=== PATIENT | female | born 1955 | race American Indian/Alaskan Native ===

== ENCOUNTER 2019-02-13 07:26 | Emergency (ER) | payer OTHER ==
[2019-02-13 07:35] VITALS: BP 178/100
[2019-02-13] MEDS ORDERED: TENORMIN PO ONE ×2 (08:20)
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
== END 2019-02-13 10:07 | disposition home or self-care (01) ==
LOC: ED 07:26
DX: S16.1XXA Strain of muscle, fascia and tendon at neck level, initial encounter (principal); M25.511 Pain in right shoulder; M25.512 Pain in left shoulder; I10 Essential (primary) hypertension; E78.5 Hyperlipidemia, unspecified; Z79.899 Other long term (current) drug therapy; Z90.711 Acquired absence of uterus with remaining cervical stump; V89.2XXA Person injured in unspecified motor-vehicle accident, traffic, initial encounter; Y93.89 Activity, other specified; Y92.488 Other paved roadways as the place of occurrence of the external cause; Y99.8 Other external cause status
CPT/HCPCS: 72040; 74018; 99283

== ENCOUNTER 2019-06-26 11:49 | Emergency (ER) | payer BC, OTHER ==
[2019-06-26] MEDS ORDERED: ASPIRIN 325 MG TAB PO ONE (12:10)
--- NOTE | 2019-06-26 12:12 | Event Note ---
ED Screening Note Date of service: 06/26/19 Time: 12:08 ED Screening Note: 63 y o female with a PMH of HTN on medication presents cc of chest pain and headache x 2 days also cc of sob and dizziness This initial assessment/diagnostic orders/clinical plan/treatment(s) is/are subject to change based on patients health status, clinical progression and re- assessment by fellow clinical providers in the ED. Further treatment and workup at subsequent clinical providers discretion. Patient/guardian urged not to elope from the ED as their condition may be serious if not clinically assessed and managed. Initial orders include: labs,ekg,cxr main side eval
--- NOTE | 2019-06-26 12:40 | XRay Report ---
CHEST 1 VIEW 06/26/2019 12:20 PM INDICATION / CLINICAL INFORMATION: Chest Pain. COMPARISON: 2 views of the chest from 11/07/2014 FINDINGS: SUPPORT DEVICES: None. HEART / MEDIASTINUM: No significant abnormality. LUNGS / PLEURA: No significant pulmonary or pleural abnormality. No pneumothorax. ADDITIONAL FINDINGS: No significant additional findings. IMPRESSION: 1. No acute abnormality of the chest. Signer Name: Sunny Bernabe MD Signed: 06/26/2019 12:36 PM Workstation Name: [id number]
--- NOTE | 2019-06-26 12:47 | Emergency Department Report ---
ED Chest Pain HPI - General Chief Complaint: Chest Pain Stated Complaint: SOB,CHEST HURTING,HEADACHE,DIZZY Time Seen by Provider: 06/26/19 12:36 Source: patient Mode of arrival: Ambulatory Limitations: No Limitations - History of Present Illness Initial Comments: Patient is 63 years old female with history of hypertension and hyperlipidemia. Patient was sent from her doctor office for evaluation of chest pain for the last 2weeks. Patient stated that pain get worse today. Patient described her pain as aching with no radiation. Patient also complaining of shortness of breath. Patient stated that she have to sleep on at least 3 pillows. She also reported bilateral lower extremity edema. Patient denied any fever or chills. MD Complaint: chest pain -: week(s) Onset: during rest, during exertion Pain Location: left chest Severity: moderate Severity scale (0 -10): 7 Quality: aching Consistency: constant - Related Data Home Medications Medication Instructions Recorded Confirmed Last Taken Atenolol [Tenormin] 50 mg PO DAILY 11/07/14 11/07/14 Unknown Furosemide [Lasix] 40 mg PO DAILY 11/07/14 11/07/14 Unknown Potassium Chloride [Klor-Con 10] 10 meq PO DAILY 11/07/14 11/07/14 Unknown Previous Rx's Medication Instructions Recorded Last Taken Type Meclizine [Antivert] 25 mg PO TID PRN #30 tablet 11/07/14 Unknown Rx Ibuprofen [Motrin 800 MG tab] 800 mg PO Q8HR PRN #20 tablet 02/13/19 Unknown Rx Methocarbamol [Robaxin] 500 mg PO BID PRN #15 tablet 02/13/19 Unknown Rx Allergies Allergy/AdvReac Type Severity Reaction Status Date / Time codeine AdvReac Unknown Verified 06/26/19 11:50 Heart Score - HEART Score History: Moderately suspicious EKG: Non-specific Age: 45-65 Risk factors: 1-2 risk factors Troponin: < normal limit HEART Score: 4 - Critical Actions Critical Actions: 4-6 pts:12-16.6% risk of adverse cardiac event. Should be admitted ED Review of Systems ROS: Stated complaint: SOB,CHEST HURTING,HEADACHE,DIZZY Other details as noted in HPI Comment: All other systems reviewed and negative Constitutional: denies: chills, fever Respiratory: cough, orthopnea, shortness of breath, SOB with exertion, SOB at rest Cardiovascular: chest pain, edema Gastrointestinal: denies: abdominal pain, nausea, vomiting Musculoskeletal: denies: back pain Neurological: denies: headache, weakness, numbness, paresthesias, confusion, abnormal gait ED Past Medical Hx - Past Medical History Hx Hypertension: Yes Additional medical history: elevated cholesterol - Surgical History Additional Surgical History: bilateral knees, partial hysterectomy - Social History Smoking Status: Never Smoker Substance Use Type: None - Medications Home Medications: Home Medications Medication Instructions Recorded Confirmed Last Taken Type Atenolol [Tenormin] 50 mg PO DAILY 11/07/14 11/07/14 Unknown History Furosemide [Lasix] 40 mg PO DAILY 11/07/14 11/07/14 Unknown History Meclizine [Antivert] 25 mg PO TID PRN #30 tablet 11/07/14 Unknown Rx Potassium Chloride [Klor-Con 10] 10 meq PO DAILY 11/07/14 11/07/14 Unknown History Ibuprofen [Motrin 800 MG tab] 800 mg PO Q8HR PRN #20 tablet 02/13/19 Unknown Rx Methocarbamol [Robaxin] 500 mg PO BID PRN #15 tablet 02/13/19 Unknown Rx ED Physical Exam - General Limitations: No Limitations General appearance: alert, in no apparent distress - Head Head exam: Present: atraumatic, normocephalic, normal inspection - Eye Eye exam: Present: normal appearance - ENT ENT exam: Present: normal exam, normal orophraynx, mucous membranes moist - Neck Neck exam: Present: normal inspection, full ROM. Absent: tenderness, meningismus, lymphadenopathy, thyromegaly - Respiratory Respiratory exam: Present: normal lung sounds bilaterally - Cardiovascular Cardiovascular Exam: Present: regular rate, normal rhythm, normal heart sounds - GI/Abdominal GI/Abdominal exam: Present: soft, normal bowel sounds. Absent: distended, tenderness, guarding, rebound, rigid, organomegaly, mass, bruit, pulsatile mass - Extremities Exam Extremities exam: Present: normal inspection, full ROM, normal capillary refill, pedal edema. Absent: calf tenderness - Back Exam Back exam: Present: normal inspection, full ROM. Absent: CVA tenderness (R), CVA tenderness (L), muscle spasm, paraspinal tenderness, vertebral tenderness - Neurological Exam Neurological exam: Present: alert, oriented X3, CN II-XII intact, normal gait, reflexes normal. Absent: motor sensory deficit - Psychiatric Psychiatric exam: Present: normal mood - Skin Skin exam: Present: warm, intact, normal color ED Course Vital Signs 06/26/19 06/26/19 12:05 12:40 Temperature 98.6 F Pulse Rate 60 Respiratory 18 16 Rate Blood Pressure 160/84 O2 Sat by Pulse 97 98 Oximetry VIRGIL score - Virgil Score Age > 65: (0) No Aspirin use within the Past 7 Days: (0) No 3 or more CAD Risk Factors: (0) No 2 or more Angina events in past 24 hrs: (0) No Known CAD with more than 50% Stenosis: (0) No Elevated Cardiac Markers: (0) No ST Deviation Greater than 0.5mm: (0) No VIRGIL Score: 0 ED Medical Decision Making - Lab Data Result diagrams: 06/26/19 12:16 06/26/19 12:16 - EKG Data -: EKG Interpreted by Me EKG shows normal: sinus rhythm Rate: normal - EKG Data Interpretation: no acute changes - Radiology Data Radiology results: report reviewed - Medical Decision Making Patient is 63 years old female with history of hypertension and hyperlipidemia. Patient was sent from her doctor office for evaluation of chest pain for the last 2weeks. Patient stated that pain get worse today. Patient described her pain as aching with no radiation. Patient also complaining of shortness of breath. Patient stated that she have to sleep on at least 3 pillows. She also reported bilateral lower extremity edema. Patient denied any fever or chills. Patient EKG showed no ST elevation or depression. Chest x-ray is negative for acute finding labs reviewed and is negative including first set of troponin. D- dimer elevated however CTA chest is negative for PE. Patient stated that her chest pain is much better now. I recommended that patient need to be admitted for chest pain rule out myocardial infarction. Patient stated that she cannot be admitted because she wanted to take care of her grandkids who are in the nursery now and their parents are out of town. I discussed with her thoroughly risks of leaving the ER AGAINST MEDICAL ADVICE which include heart attack and . Patient is alert, oriented x3 and able to make a sound decision. Critical care attestation.: If time is entered above; I have spent that time in minutes in the direct care of this critically ill patient, excluding procedure time. ED Disposition Clinical Impression: Chest pain Disposition: [id number] LEFT AGAINST MED ADVICE Is pt being admited?: No Condition: Stable Instructions: Chest Pain (ED)
[2019-06-26 12:59] LABS: Basophils % (Auto) 0.5 % (0.0-1.8); Eosinophils # (Auto) 0.1 K/mm3 (0.0-0.4); Eosinophils % (Auto) 1.9 % (0.0-4.3); Hematocrit 34.7 % (30.3-42.9); Lymphocytes # (Auto) 1.3 K/mm3 (1.2-5.4); Lymphocytes % (Auto) 36.3 % (13.4-35.0); Mean Corpuscular HGB Conc 32 % (30-34); Mean Corpuscular Volume 91 fl (79-97); Monocytes # (Auto) 0.3 K/mm3 (0.0-0.8); Monocytes % (Auto) 7.8 % (0.0-7.3); Platelet Count 195 K/mm3 (140-440); Red Blood Count 3.82 M/mm3 (3.65-5.03); Red Cell Distribution Width 14.4 % (13.2-15.2)
[2019-06-26 13:26] LABS: BUN/Creatinine Ratio 17; Blood Urea Nitrogen 12 mg/dL (7-17); Calcium 8.8 mg/dL (8.4-10.2); Hemolysis Index 10
[2019-06-26 13:45] LABS: INR 1.06 (0.87-1.13)
[2019-06-26 13:57] LABS: Alanine Aminotransferase 21 units/L (7-56)
[2019-06-26 14:01] LABS: Bilirubin,Direct < 0.2 mg/dL (0-0.2)
--- NOTE | 2019-06-26 16:03 | Cat Scan Report ---
6 CTA chest with contrast INDICATION : CHEST PAIN WITH SOB. TECHNIQUE: Axial imaging performed through the chest, with contrast bolus timing set to maximize opa cification of the pulmonary arteries. 3-plane MIP reformatted images were obtained. All CT scans at this location are performed using CT dose reduction for ALARA by means of automated exposure control. 100 mL of intravenous contrast administered. COMPARISON: None. FINDINGS: Bolus: Contrast bolus timing is adequate. PTE: No filling defect is present to suggest PTE. Mediastinum: Heart and great vessels appear normal. No pathologic mediastinal adenopathy. Lungs: Mild emphysematous change with otherwise clear lungs. Upper abdomen: Limited imaging of the upper abdomen shows nothing acute. Bones: Degenerative changes in the spine with nothing acute. IMPRESSION: Negative for PTE. Clear lungs. Signer Name: Joshua Soler MD Signed: 06/26/2019 3:59 PM Workstation Name: [id number]
[2019-06-26 17:11] VITALS: BP 151/97
== END 2019-06-26 17:15 | disposition left against medical advice (07) ==
LOC: ED 11:49
DX: R07.9 Chest pain, unspecified (principal); I10 Essential (primary) hypertension; E78.5 Hyperlipidemia, unspecified
CPT/HCPCS: 36415; 71046; 71275; 80048; 80076; 83880; 84484; 85025; 85379; 85610; 85730; 93005; 93010; 99285; Q9967

== ENCOUNTER 2019-06-26 18:30 | Inpatient (IN) | payer BC ==
[2019-06-26] MEDS ORDERED: ASPIRIN 325 MG TAB PO ONE (20:02)
--- NOTE | 2019-06-26 20:04 | Emergency Department Report ---
ED Chest Pain HPI - General Chief Complaint: Dizziness Stated Complaint: DIZZY/LIGHT HEADED/CP Time Seen by Provider: 06/26/19 19:56 Source: patient Mode of arrival: Ambulatory Limitations: No Limitations - History of Present Illness Initial Comments: Patient is a 63-year-old female that presents emergency room with complaints of chest pain, dizziness and lightheadedness. Patient states she was here earlier and it was recommended that she was admitted and she signed out AGAINST MEDICAL ADVICE at 5 PM. Patient states she left the hospital and her chest pain was mild. Patient states her chest pain returned and worsened. Patient states her chest pain now is a 7 out of 10. Patient dates in the center of her chest. Patient states the pain is nonradiating. Patient denies shortness of breath. Patient denies fever and chills. Patient denies cough. Patient states her pain is better with rest and worse with exertion. Patient states her dizziness and lightheadedness are better with rest and worse with exertion. MD Complaint: chest pain -: Sudden Onset: during rest Pain Location: substernal, left chest Pain Radiation: none Severity: severe Severity scale (0 -10): 7 Quality: sharp Consistency: constant Improves With: rest Worsens With: exertion re: denies: nausea, vomting, diaphoresis, dyspnea, sense of impending doom Other Symptoms: denies: cough, fever, syncope, rash, acid taste in mouth, leg swelling, palpitations, burping Treatments Prior to Arrival: aspirin Aspirin use within the Past 7 Days: (1) Yes - Related Data On Oral Contraceptives: No Home Medications Medication Instructions Recorded Confirmed Last Taken Atenolol [Tenormin] 50 mg PO DAILY 11/07/14 11/07/14 Unknown Furosemide [Lasix] 40 mg PO DAILY 11/07/14 11/07/14 Unknown Potassium Chloride [Klor-Con 10] 10 meq PO DAILY 11/07/14 11/07/14 Unknown Previous Rx's Medication Instructions Recorded Last Taken Type Meclizine [Antivert] 25 mg PO TID PRN #30 tablet 11/07/14 Unknown Rx Ibuprofen [Motrin 800 MG tab] 800 mg PO Q8HR PRN #20 tablet 02/13/19 Unknown Rx Methocarbamol [Robaxin] 500 mg PO BID PRN #15 tablet 02/13/19 Unknown Rx Allergies Allergy/AdvReac Type Severity Reaction Status Date / Time codeine AdvReac Unknown Verified 06/26/19 18:31 Heart Score - HEART Score History: Moderately suspicious EKG: Non-specific Age: 45-65 Risk factors: No known risk factors Troponin: < normal limit HEART Score: 3 ED Review of Systems ROS: Stated complaint: DIZZY/LIGHT HEADED/CP Other details as noted in HPI Constitutional: denies: chills, fever Eyes: denies: eye pain, eye discharge, vision change ENT: denies: ear pain, throat pain Respiratory: denies: cough, shortness of breath, wheezing Cardiovascular: chest pain. denies: palpitations Endocrine: no symptoms reported Gastrointestinal: denies: abdominal pain, nausea, diarrhea Genitourinary: denies: urgency, dysuria, discharge Musculoskeletal: denies: back pain, joint swelling, arthralgia Skin: denies: rash, lesions Neurological: as per HPI, other. denies: headache, weakness, paresthesias Psychiatric: denies: anxiety, depression Hematological/Lymphatic: denies: easy bleeding, easy bruising ED Past Medical Hx - Past Medical History Previous Medical History?: Yes Hx Hypertension: Yes Additional medical history: elevated cholesterol - Surgical History Past Surgical History?: Yes Additional Surgical History: bilateral knees, partial hysterectomy - Family History Family history: no significant - Social History Smoking Status: Never Smoker Substance Use Type: None - Medications Home Medications: Home Medications Medication Instructions Recorded Confirmed Last Taken Type Atenolol [Tenormin] 50 mg PO DAILY 11/07/14 11/07/14 Unknown History Furosemide [Lasix] 40 mg PO DAILY 11/07/14 11/07/14 Unknown History Meclizine [Antivert] 25 mg PO TID PRN #30 tablet 11/07/14 Unknown Rx Potassium Chloride [Klor-Con 10] 10 meq PO DAILY 11/07/14 11/07/14 Unknown History Ibuprofen [Motrin 800 MG tab] 800 mg PO Q8HR PRN #20 tablet 02/13/19 Unknown Rx Methocarbamol [Robaxin] 500 mg PO BID PRN #15 tablet 02/13/19 Unknown Rx ED Physical Exam - General Limitations: No Limitations General appearance: alert, in no apparent distress - Head Head exam: Present: atraumatic, normocephalic - Eye Eye exam: Present: normal appearance - ENT ENT exam: Present: mucous membranes moist - Neck Neck exam: Present: normal inspection - Respiratory Respiratory exam: Present: normal lung sounds bilaterally. Absent: respiratory distress, wheezes, rales - Cardiovascular Cardiovascular Exam: Present: regular rate, normal rhythm. Absent: systolic murmur, diastolic murmur, rubs, gallop - GI/Abdominal GI/Abdominal exam: Present: soft, normal bowel sounds. Absent: distended, tenderness - Extremities Exam Extremities exam: Present: normal inspection - Back Exam Back exam: Present: normal inspection - Neurological Exam Neurological exam: Present: alert, oriented X3 - Psychiatric Psychiatric exam: Present: normal affect, normal mood - Skin Skin exam: Present: warm, dry, intact, normal color. Absent: rash ED Course Vital Signs 06/26/19 19:15 Temperature 97.6 F Pulse Rate 70 Respiratory 18 Rate Blood Pressure 150/86 O2 Sat by Pulse 98 Oximetry - Reevaluation(s) Reevaluation #1: Patient agrees to be admitted at this time. Initial exam done. Patient will have labs and EKG and then the patient will be admitted to the hospitalist service. 06/26/19 20:04 Reevaluation #2: I discussed all results with patient. I discussed plan of care with patient. Patient agrees with plan of care and admission. Patient to be admitted to the hospitalist service. 06/26/19 21:24 - Consultations Consultation #1: Hospitalist consulted for admission. Hospitalist to admit patient. Bridge orders placed. 06/26/19 21:25 VIRGIL score - Virgil Score Age > 65: (0) No Aspirin use within the Past 7 Days: (0) No 3 or more CAD Risk Factors: (0) No 2 or more Angina events in past 24 hrs: (0) No Known CAD with more than 50% Stenosis: (0) No Elevated Cardiac Markers: (0) No ST Deviation Greater than 0.5mm: (0) No VIRGIL Score: 0 ED Medical Decision Making - Lab Data Labs 06/26/19 06/26/19 20:13 20:13 Total Creatine Kinase 73 CK-MB (CK-2) 1.1 CK-MB (CK-2) Rel Index 1.5 Troponin T < 0.010 - EKG Data -: EKG Interpreted by Me EKG shows normal: sinus rhythm, axis, intervals, QRS complexes, ST-T waves Rate: bradycardia - Radiology Data Radiology results: report reviewed 6 CTA chest with contrast INDICATION : CHEST PAIN WITH SOB. TECHNIQUE: Axial imaging performed through the chest, with contrast bolus timing set to maximize opacification of the pulmonary arteries. 3-plane MIP reformatted images were obtained. All CT scans at this location are performed using CT dose reduction for ALARA by means of a utomated exposure control. 100 mL of intravenous contrast administered. COMPARISON: None. FINDINGS: Bolus: Contrast bolus timing is adequate. PTE: No filling defect is present to suggest PTE. Mediastinum: Heart and great vessels appear normal. No pathologic mediastinal adenopathy. Lungs: Mild emphysematous change with otherwise clear lungs. Upper abdomen: Limited imaging of the upper abdomen shows nothing acute. Bones: Degenerative changes in the spine with nothing acute. IMPRESSION: Negative for PTE. Clear lungs. - Medical Decision Making Patient is a 63-year-old female that presents emergency room with complaints of dizziness, lightheadedness, chest pain and shortness of breath. Patient was seen here earlier and was recommended the patient be admitted however the patient left the hospital AGAINST MEDICAL ADVICE and return promptly after the chest pain increased. Patient's chest pain is worse with exertion. Patient admitted to the hospital service. Patient will need to rule out ACS. Patient's troponin repeated and negative. Patient's EKG repeated and no acute findings or STEMI. - Differential Diagnosis acs. sob.cp. dizziness. Critical care attestation.: If time is entered above; I have spent that time in minutes in the direct care of this critically ill patient, excluding procedure time. ED Disposition Clinical Impression: Dizziness, SOB (shortness of breath) Chest pain Qualifiers: Chest pain type: unspecified Qualified Code(s): R07.9 - Chest pain, unspecified Disposition: OP ADMIT IP TO THIS HOSP Is pt being admited?: Yes Does the pt Need Aspirin: No Condition: Critical Referrals: PRIMARY CAREMD [Primary Care Provider] - 3-5 Days Time of Disposition: 21:27
[2019-06-26 20:47] LABS: Creatine Kinase MB 1.1 ng/mL (0.0-4.0)
[2019-06-26] MEDS ORDERED: ONDANSETRON 4 MG/2 ML INJ ONE (21:04)
[2019-06-26] MEDS ORDERED: MORPHINE 2 MG/1 ML INJ ONE (21:05)
[2019-06-26] MEDS ORDERED: ONDANSETRON 4 MG/2 ML INJ IV PRN (22:41)
[2019-06-26] MEDS ORDERED: ACETAMINOPHEN 325 MG TAB PO PRN (22:41)
--- NOTE | 2019-06-26 22:44 | History and Physical Report ---
History of Present Illness Date of admission: 06/26/19 21:54 History of present illness: 63-year-old woman with a history of hypertension, hyperlipidemia, rheumatoid arthritis comes emergency room with complaints of chest pain that has been intermittent over the last 2 weeks. Pain is in the left chest which he descri bed as achy, intermittent pain every 30 minutes, intensity 5-10, radiating to the back, cannot identify exacerbating or relieving factors. Admits to shortness of breath, nausea, no diaphoresis or palpitation. She had a stress test done last year which was negative. She was seen earlier in the emergency room today and signed out AGAINST MEDICAL ADVICE. She had recurrence of her chest pain and came back to the emergency room for evaluation. Patient will be admitted for chest pain evaluation Review Of Systems: Constitutional: no weight loss, fever, chills Ears, eyes, nose, mouth and throat: no nasal congestion, no nasal discharge, no sinus pressure, blurry vision, diplopia Neck: No neck pain or rigidity. Cardiovascular: No palpitations Respiratory: No shortness of breath, cough Gastrointestinal: No hematochezia, abdominal pain Genitourinary : no dysuria, frequency Musculoskeletal: no muscle ache , joint pain Integumentary: no rash, no pruritis Neurological: no parathesias, focal weakness Endocrine: no cold or heat intolerance, no polyuria or polydipsia Hematologic/Lymphatic: no easy bruising, no easy bleeding, no gland swelling Allergic/Immunologic: no urticaria, no angioedema. PAST MEDICAL HISTORY: hypertension, hyperlipidemia, rheumatoid arthritis PAST SURGICAL HISTORY: Partial hysterectomy, bilateral knee SOCIAL HISTORY: Denies alcohol, tobacco, drugs FAMILY HISTORY: Hypertension Medications and Allergies Allergies Allergy/AdvReac Type Severity Reaction Status Date / Time codeine AdvReac Unknown Verified 06/26/19 18:31 Home Medications Medication Instructions Recorded Confirmed Last Taken Type Atenolol [Tenormin] 50 mg PO DAILY 11/07/14 11/07/14 Unknown History Furosemide [Lasix] 40 mg PO DAILY 11/07/14 11/07/14 Unknown History Meclizine [Antivert] 25 mg PO TID PRN #30 tablet 11/07/14 Unknown Rx Potassium Chloride [Klor-Con 10] 10 meq PO DAILY 11/07/14 11/07/14 Unknown History Ibuprofen [Motrin 800 MG tab] 800 mg PO Q8HR PRN #20 tablet 02/13/19 Unknown Rx Methocarbamol [Robaxin] 500 mg PO BID PRN #15 tablet 02/13/19 Unknown Rx Active Meds: Active Medications Acetaminophen (Tylenol) 650 mg PO Q4H PRN PRN Reason: Pain MILD(1-3)/Fever >100.5/SMITH Enoxaparin Sodium (Enoxaparin) 30 mg SUB-Q QDAY NENITA Ondansetron HCl (Zofran) 4 mg IV Q8H PRN PRN Reason: Nausea And Vomiting Sodium Chloride (Sodium Chloride Flush Syringe 10 Ml) 10 ml IV BID NENITA Sodium Chloride (Sodium Chloride Flush Syringe 10 Ml) 10 ml IV PRN PRN PRN Reason: LINE FLUSH Exam - Physical Exam Narrative exam: Gen. appearance: Patient lying in bed, no apparent distress HEENT: Normocephalic, atraumatic, pupils equally round and reactive to light, extraocular movement intact, and no sclericterus,. No JVD or thyromegaly or nodule,neck supple, no carotid bruit ,mucous membranes moist, no exudate or erythema Heart: S1, S2, regular rate and rhythm Lungs: Clear bilaterally, breathing comfortable Abdomen: Positive bowel sounds, nontender, nondistended, no organomegaly Extremity: no edema, cyanosis, clubbing Skin: No rash, nodules, warm, dry Neuro: speech is fluent, cranial nerves II to XII intact, motor and sensory intact - Constitutional Vitals: Temp Pulse Resp BP Pulse Ox 97.6 F 70 18 150/86 98 06/26/19 19:15 06/26/19 19:15 06/26/19 19:15 06/26/19 19:15 06/26/19 19:15 Results - Imaging and Cardiology EKG: image reviewed Chest x-ray: report reviewed CT scan - chest: report reviewed Assessment and Plan Assessment Chest pain Check cardiac enzymes, consult cardiology CT chest negative for PE Start aspirin, Percocet for pain Hypertension Continue outpatient medications Hyperlipidemia Continue statin DVT prophylaxis
[2019-06-26] MEDS ORDERED: MORPHINE 2 MG/1 ML INJ IV ONE (23:04)
[2019-06-26] MEDS ORDERED: ONDANSETRON 4 MG/2 ML INJ IV ONE (23:05)
[2019-06-27 06:57] LABS: Basophils % (Auto) 0.5 % (0.0-1.8); Eosinophils # (Auto) 0.1 K/mm3 (0.0-0.4); Eosinophils % (Auto) 1.9 % (0.0-4.3); Hematocrit 32.1 % (30.3-42.9); Hemoglobin 10.6 gm/dl (10.1-14.3); Lymphocytes # (Auto) 1.3 K/mm3 (1.2-5.4); Lymphocytes % (Auto) 32.1 % (13.4-35.0); Mean Corpuscular HGB Conc 33 % (30-34); Mean Corpuscular Volume 90 fl (79-97); Monocytes # (Auto) 0.4 K/mm3 (0.0-0.8); Monocytes % (Auto) 8.7 % (0.0-7.3); Platelet Count 174 K/mm3 (140-440); Red Blood Count 3.55 M/mm3 (3.65-5.03); Red Cell Distribution Width 14.5 % (13.2-15.2)
[2019-06-27 06:59] LABS: BUN/Creatinine Ratio 21; Blood Urea Nitrogen 15 mg/dL (7-17); Calcium 8.8 mg/dL (8.4-10.2); Hemolysis Index 8
[2019-06-27] MEDS: ASPIRIN 81 MG TAB CHEW PO SCH (09:49)
[2019-06-27] MEDS: ENOXAPARIN 40 MG/0.4 ML INJ SUB-Q SCH (09:50)
--- NOTE | 2019-06-27 09:53 | Consultation ---
History of Present Illness Consult date: 06/27/19 Consult reason: chest pain History of present illness: This is a 63-year old woman with a history of hypertension and hyperlipidemia. She denies prior cardiac history and had no recent cardiac evaluation. Patient presented with complaints of chest pain, thus this cardiac consultation. Patient initially left the emergency department AMA then returned several hours later for admission. Patient describes chest pain as intermittent for several weeks associated with shortness of breath, dizziness and diaphoresis. There was no syncope. Chest x-ray is negative and a CTA scan of the chest reports no PE. Cycled troponins were negative. An ECG is sinus rhythm, no acute ischemic changes. Medications and Allergies Allergies Allergy/AdvReac Type Severity Reaction Status Date / Time codeine AdvReac Unknown Verified 06/26/19 18:31 Home Medications Medication Instructions Recorded Confirmed Last Taken Type Furosemide [Lasix] 40 mg PO DAILY 11/07/14 11/07/14 Unknown History Potassium Chloride [Klor-Con 10] 10 meq PO DAILY 11/07/14 11/07/14 Unknown History Ibuprofen [Motrin 800 MG tab] 800 mg PO Q8HR PRN #20 tablet 02/13/19 Unknown Rx Active Meds: Active Medications Acetaminophen (Tylenol) 650 mg PO Q4H PRN PRN Reason: Pain MILD(1-3)/Fever >100.5/SMITH Aspirin (Baby Aspirin) 81 mg PO QDAY NENITA Enoxaparin Sodium (Enoxaparin) 40 mg SUB-Q QDAY@1000 NENITA Ondansetron HCl (Zofran) 4 mg IV Q8H PRN PRN Reason: Nausea And Vomiting Sodium Chloride (Sodium Chloride Flush Syringe 10 Ml) 10 ml IV BID NENITA Sodium Chloride (Sodium Chloride Flush Syringe 10 Ml) 10 ml IV PRN PRN PRN Reason: LINE FLUSH Physical Examination Vital Signs Temp Pulse Resp BP Pulse Ox 97.6 F 69 18 150/86 98 06/26/19 18:35 06/26/19 18:35 06/26/19 18:35 06/26/19 18:35 06/26/19 18:35 General appearance: no acute distress HEENT: Positive: PERRL Neck: Positive: trachea midline Cardiac: Positive: Reg Rate and Rhythm Lungs: Positive: Normal Breath Sounds Neuro: Positive: Grossly Intact Extremities: Absent: edema Results 06/27/19 06:18 06/27/19 06:18 Cardiac Enzymes 06/26/19 Range/Units 20:13 CK-MB (CK-2) 1.1 (0.0-4.0) ng/mL CBC 06/27/19 Range/Units 06:18 WBC 4.0 L (4.5-11.0) K/mm3 RBC 3.55 L (3.65-5.03) M/mm3 Hgb 10.6 (10.1-14.3) gm/dl Hct 32.1 (30.3-42.9) % Plt Count 174 (140-440) K/mm3 Lymph # 1.3 (1.2-5.4) K/mm3 [place] # 0.4 (0.0-0.8) K/mm3 Eos # 0.1 (0.0-0.4) K/mm3 Baso # 0.0 (0.0-0.1) K/mm3 Comprehensive Metabolic Panel 06/27/19 Range/Units 06:18 Sodium 148 H (137-145) mmol/L Potassium 3.9 (3.6-5.0) mmol/L Chloride 108.7 H (98-107) mmol/L Carbon Dioxide 25 (22-30) mmol/L BUN 15 (7-17) mg/dL Creatinine 0.7 (0.7-1.2) mg/dL Glucose 102 H (65-100) mg/dL Calcium 8.8 (8.4-10.2) mg/dL Assessment and Plan Chest pain chest CTA - no PE negative troponin Hypertension Hlp Plan: Echocardiogram for LVEF assessment. Patient ate breakfast this morning, therefore we will proceed with a stress thallium test on Sunday.
[2019-06-27] MEDS ORDERED: ENOXAPARIN 30 MG/0.3 ML INJ SUB-Q SCH (10:00)
--- NOTE | 2019-06-27 14:31 | Progress Note ---
Assessment and Plan Assessment and plan: --Chest pain/angina; Serial cardiac enzymes Continue current cardiac medications Follow echo for EF and LV function Cardiology consulted Possible stress test tomorrow CTA chest negative for PE Start aspirin, Percocet for pain --Hypertension; moderate control Continue current antihypertensives and PRN medications --Dyslipidemia; statin, low-cholesterol diet --DVT prophylaxis; Lovenox Monitor closely and adjust management as needed Follow stress test tomorrow, if negative and patient is stable May be discharged home Plan of care reviewed with the patient and his at the bedside History Interval history: Patient seen and examined at bedside, patient's chart and medical records reviewed Admitted with chest pain, evaluated by cardiology Scheduled for stress test tomorrow Patient feels slightly better Alert awake oriented Vital signs reviewed Hospitalist Physical - Constitutional Vitals: Temp Pulse Resp BP Pulse Ox 98.3 F 63 18 140/80 95 06/27/19 08:31 06/27/19 08:31 06/27/19 08:31 06/27/19 08:31 06/27/19 10:00 General appearance: Present: no acute distress, well-nourished, obese - EENT Eyes: Present: PERRL, EOM intact - Neck Neck: Present: supple, normal ROM - Respiratory Respiratory effort: normal Respiratory: bilateral: diminished, negative: rales, rhonchi, wheezing - Cardiovascular Rhythm: regular Heart Sounds: Present: S1 & S2 - Extremities Extremities: no ischemia, No edema - Abdominal General gastrointestinal: soft, non-tender, non-distended, normal bowel sounds - Integumentary Integumentary: Present: clear, warm - Psychiatric Psychiatric: appropriate mood/affect, cooperative - Neurologic Neurologic: CNII-XII intact, moves all extremities VIRGIL score - Virgil Score Age > 65: (0) No Aspirin use within the Past 7 Days: (0) No 3 or more CAD Risk Factors: (0) No 2 or more Angina events in past 24 hrs: (0) No Known CAD with more than 50% Stenosis: (0) No Elevated Cardiac Markers: (0) No ST Deviation Greater than 0.5mm: (0) No VIRGIL Score: 0 Results - Labs CBC & Chem 7: 06/27/19 06:18 06/27/19 06:18 Labs: Laboratory Last Values WBC 4.0 K/mm3 (4.5-11.0) L 06/27/19 06:18 RBC 3.55 M/mm3 (3.65-5.03) L 06/27/19 06:18 Hgb 10.6 gm/dl (10.1-14.3) 06/27/19 06:18 Hct 32.1 % (30.3-42.9) 06/27/19 06:18 MCV 90 fl (79-97) 06/27/19 06:18 MCH 30 pg (28-32) 06/27/19 06:18 MCHC 33 % (30-34) 06/27/19 06:18 RDW 14.5 % (13.2-15.2) 06/27/19 06:18 Plt Count 174 K/mm3 (140-440) 06/27/19 06:18 Lymph % (Auto) 32.1 % (13.4-35.0) 06/27/19 06:18 [place] % (Auto) 8.7 % (0.0-7.3) H 06/27/19 06:18 Eos % (Auto) 1.9 % (0.0-4.3) 06/27/19 06:18 Baso % (Auto) 0.5 % (0.0-1.8) 06/27/19 06:18 Lymph # 1.3 K/mm3 (1.2-5.4) 06/27/19 06:18 [place] # 0.4 K/mm3 (0.0-0.8) 06/27/19 06:18 Eos # 0.1 K/mm3 (0.0-0.4) 06/27/19 06:18 Baso # 0.0 K/mm3 (0.0-0.1) 06/27/19 06:18 Seg Neutrophils % 56.8 % (40.0-70.0) 06/27/19 06:18 Seg Neutrophils # 2.3 K/mm3 (1.8-7.7) 06/27/19 06:18 Sodium 148 mmol/L (137-145) H 06/27/19 06:18 Potassium 3.9 mmol/L (3.6-5.0) 06/27/19 06:18 Chloride 108.7 mmol/L (98-107) H 06/27/19 06:18 Carbon Dioxide 25 mmol/L (22-30) 06/27/19 06:18 Anion Gap 18 mmol/L 06/27/19 06:18 BUN 15 mg/dL (7-17) 06/27/19 06:18 Creatinine 0.7 mg/dL (0.7-1.2) 06/27/19 06:18 Estimated GFR > 60 ml/min 06/27/19 06:18 BUN/Creatinine Ratio 21 % 06/27/19 06:18 Glucose 102 mg/dL (65-100) H 06/27/19 06:18 Calcium 8.8 mg/dL (8.4-10.2) 06/27/19 06:18 Total Creatine Kinase 73 units/L (30-135) 06/26/19 20:13 CK-MB (CK-2) 1.1 ng/mL (0.0-4.0) 06/26/19 20:13 CK-MB (CK-2) Rel Index 1.5 (0-4) 06/26/19 20:13 Troponin T < 0.010 ng/mL (0.00-0.029) 06/26/19 20:13 Active Medications - Current Medications Current Medications: Generic Name Dose Route Start Last Admin Trade Name Freq PRN Reason Stop Dose Admin Acetaminophen 650 mg 06/26/19 22:41 Tylenol PO Q4H PRN Pain MILD(1-3)/Fever >100.5/SMITH Aspirin 81 mg 06/27/19 10:00 06/27/19 09:49 Baby Aspirin PO 81 mg QDAY NENITA Administration Enoxaparin Sodium 40 mg 06/27/19 10:00 06/27/19 09:50 Enoxaparin SUB-Q 40 mg QDAY@1000 NENITA Administration Ondansetron HCl 4 mg 06/26/19 22:41 Zofran IV Q8H PRN Nausea And Vomiting Sodium Chloride 10 ml 06/27/19 10:00 06/27/19 09:50 Sodium Chloride Flush Syringe 10 Ml IV 10 ml BID NENITA Administration Sodium Chloride 10 ml 06/26/19 22:41 Sodium Chloride Flush Syringe 10 Ml IV PRN PRN LINE FLUSH Nutrition/Malnutrition Assess - Dietary Evaluation Nutrition/Malnutrition Findings: Nutrition Notes Start: 06/27/19 11:03 Freq: Status: Active Protocol: Document 06/27/19 11:03 CT (Rec: 06/27/19 11:06 CT [email or web address]) Co-Sign 06/27/19 11:03 LP Nutrition Notes 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 [id number] . Pt stated UBW is 175 lbs and has not noticed any wt loss. Pt stated eating well [employer] and now while in the hospital but did not like some of the foods . Preferences noted. Burn Absent Trauma Absent GI Symptoms None Current % PO Fair (50-74%) Minimum of two criteria No physical signs of malnutrition #1 Nutrition Diagnosis No nutrition diagnosis at this time Nutrition Intervention Anticipated Discharge Needs: Cardiac Diet Revisit per MD consult or patient Sign Off request:
[2019-06-28] MEDS ORDERED: REGADENOSON 0.4 MG/5 ML INJ IV ONE ×2 (08:07→08:21)
[2019-06-28] MEDS: ASPIRIN 81 MG TAB CHEW PO SCH (09:48)
[2019-06-28] MEDS: ENOXAPARIN 40 MG/0.4 ML INJ SUB-Q SCH (09:48)
--- NOTE | 2019-06-28 09:51 | Progress Note ---
Hospitalist Physical - Constitutional Vitals: Temp Pulse Resp BP Pulse Ox 97.5 F L 60 18 152/89 97 06/28/19 03:57 06/28/19 03:57 06/28/19 03:57 06/28/19 03:57 06/28/19 03:57 General appearance: Present: no acute distress, well-nourished, obese VIRGIL score - Virgil Score Age > 65: (0) No Aspirin use within the Past 7 Days: (0) No 3 or more CAD Risk Factors: (0) No 2 or more Angina events in past 24 hrs: (0) No Known CAD with more than 50% Stenosis: (0) No Elevated Cardiac Markers: (0) No ST Deviation Greater than 0.5mm: (0) No VIRGIL Score: 0 Results - Labs CBC & Chem 7: 06/27/19 06:18 06/27/19 06:18 Labs: Laboratory Last Values WBC 4.0 K/mm3 (4.5-11.0) L 06/27/19 06:18 RBC 3.55 M/mm3 (3.65-5.03) L 06/27/19 06:18 Hgb 10.6 gm/dl (10.1-14.3) 06/27/19 06:18 Hct 32.1 % (30.3-42.9) 06/27/19 06:18 MCV 90 fl (79-97) 06/27/19 06:18 MCH 30 pg (28-32) 06/27/19 06:18 MCHC 33 % (30-34) 06/27/19 06:18 RDW 14.5 % (13.2-15.2) 06/27/19 06:18 Plt Count 174 K/mm3 (140-440) 06/27/19 06:18 Lymph % (Auto) 32.1 % (13.4-35.0) 06/27/19 06:18 Tama % (Auto) 8.7 % (0.0-7.3) H 06/27/19 06:18 Eos % (Auto) 1.9 % (0.0-4.3) 06/27/19 06:18 Baso % (Auto) 0.5 % (0.0-1.8) 06/27/19 06:18 Lymph # 1.3 K/mm3 (1.2-5.4) 06/27/19 06:18 Tama # 0.4 K/mm3 (0.0-0.8) 06/27/19 06:18 Eos # 0.1 K/mm3 (0.0-0.4) 06/27/19 06:18 Baso # 0.0 K/mm3 (0.0-0.1) 06/27/19 06:18 Seg Neutrophils % 56.8 % (40.0-70.0) 06/27/19 06:18 Seg Neutrophils # 2.3 K/mm3 (1.8-7.7) 06/27/19 06:18 Sodium 148 mmol/L (137-145) H 06/27/19 06:18 Potassium 3.9 mmol/L (3.6-5.0) 06/27/19 06:18 Chloride 108.7 mmol/L (98-107) H 06/27/19 06:18 Carbon Dioxide 25 mmol/L (22-30) 06/27/19 06:18 Anion Gap 18 mmol/L 06/27/19 06:18 BUN 15 mg/dL (7-17) 06/27/19 06:18 Creatinine 0.7 mg/dL (0.7-1.2) 06/27/19 06:18 Estimated GFR > 60 ml/min 06/27/19 06:18 BUN/Creatinine Ratio 21 % 06/27/19 06:18 Glucose 102 mg/dL (65-100) H 06/27/19 06:18 Calcium 8.8 mg/dL (8.4-10.2) 06/27/19 06:18 Total Creatine Kinase 73 units/L (30-135) 06/26/19 20:13 CK-MB (CK-2) 1.1 ng/mL (0.0-4.0) 06/26/19 20:13 CK-MB (CK-2) Rel Index 1.5 (0-4) 06/26/19 20:13 Troponin T < 0.010 ng/mL (0.00-0.029) 06/26/19 20:13 Active Medications - Current Medications Current Medications: Generic Name Dose Route Start Last Admin Trade Name Freq PRN Reason Stop Dose Admin Acetaminophen 650 mg 06/26/19 22:41 Tylenol PO Q4H PRN Pain MILD(1-3)/Fever >100.5/SMITH Aspirin 81 mg 06/27/19 10:00 06/28/19 09:48 Baby Aspirin PO 81 mg QDAY NENITA Administration Atenolol 100 mg 06/28/19 10:00 06/28/19 09:48 Tenormin PO 100 mg QDAY NENITA Administration Enoxaparin Sodium 40 mg 06/27/19 10:00 06/28/19 09:48 Enoxaparin SUB-Q 40 mg QDAY@1000 NENITA Administration Furosemide 40 mg 06/28/19 10:00 06/28/19 09:48 Lasix PO 40 mg DAILY NENITA Administration Ondansetron HCl 4 mg 06/26/19 22:41 Zofran IV Q8H PRN Nausea And Vomiting Potassium Chloride 10 meq 06/28/19 10:00 06/28/19 09:48 K-Dur PO 10 meq QDAY NENITA Administration Sodium Chloride 10 ml 06/27/19 10:00 06/28/19 09:48 Sodium Chloride Flush Syringe 10 Ml IV 10 ml BID NENITA Administration Sodium Chloride 10 ml 06/26/19 22:41 Sodium Chloride Flush Syringe 10 Ml IV PRN PRN LINE FLUSH Nutrition/Malnutrition Assess - Dietary Evaluation Nutrition/Malnutrition Findings: Nutrition Notes Start: 06/27/19 11:03 Freq: Status: Active Protocol: Document 06/27/19 11:03 CT (Rec: 06/27/19 11:06 CT [email or web address]) Co-Sign 06/27/19 11:03 LP Nutrition Notes 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 RODRIGUEZ=21 . Pt stated UBW is 175 lbs and has not noticed any wt loss. Pt stated eating well [employer] and now while in the hospital but did not like some of the foods . Preferences noted. Burn Absent Trauma Absent GI Symptoms None Current % PO Fair (50-74%) Minimum of two criteria No physical signs of malnutrition #1 Nutrition Diagnosis No nutrition diagnosis at this time Nutrition Intervention Anticipated Discharge Needs: Cardiac Diet Revisit per MD consult or patient Sign Off request:
[2019-06-28 09:59] VITALS: BP 142/95
[2019-06-28] MEDS ORDERED: atenoloL 50 MG TAB PO SCH (10:00)
[2019-06-28] MEDS ORDERED: FUROSEMIDE 40 MG TAB PO SCH (10:00)
[2019-06-28] MEDS ORDERED: NON-FORMULARY EACH (Potassium Chloride [Klor-Con 10] 10 MEQ) PO SCH (10:00)
[2019-06-28] MEDS ORDERED: POTASSIUM CHLORIDE ER 10 MEQ TAB PO SCH (10:00)
[2019-06-28] MEDS ORDERED: ATENOLOL 100 MG PO SCH (10:00)
--- NOTE | 2019-06-28 10:52 | Progress Note ---
Assessment and Plan Chest pain chest CTA - no PE negative troponin Myocardial perfusion and today is negative Hypertension controlled Hlp on statins Plan: Stress test is normal. Patient can be discharged home with outpatient follow-up. Subjective Date of service: 06/28/19 Principal diagnosis: Chest pain Interval history: No significant events overnight Objective Vital Signs Temp Pulse Resp BP Pulse Ox 06/28/19 10:00 87 06/28/19 09:58 98.2 F 18 142/95 06/28/19 09:06 210/108 06/28/19 08:18 151/78 06/28/19 03:57 97.5 F L 60 18 152/89 97 06/27/19 23:00 60 06/27/19 22:51 97.8 F 60 18 140/89 94 06/27/19 20:00 20 06/27/19 19:57 97.9 F 61 16 137/86 97 06/27/19 17:45 97.7 F 66 18 141/85 97 06/27/19 15:11 62 06/27/19 13:59 97.5 F L 67 18 141/75 99 - Physical Examination HEENT: Positive: PERRL, Normocephaly Neck: Positive: neck supple, trachea midline Cardiac: Positive: Reg Rate and Rhythm Lungs: Positive: Normal Exam Neuro: Positive: Grossly Intact Abdomen: Positive: Unremarkable Skin: Positive: Clear Extremities: Present: normal. Absent: edema - Imaging and Cardiology EKG: image reviewed
--- NOTE | 2019-06-28 11:08 | Treadmill Report ---
MYOCARDIAL PERFUSION SCAN REPORT REFERRING PHYSICIAN: Dr. Avila. PROCEDURE DETAILS: Myocardial perfusion scan was done using the standard treadmill protocol. Scans were done in pre and post treadmill stress test. Gated analysis and review of the rest and stress images were done. FINDINGS: 1. Homogeneous uptake of tracer noted in the rest and stress images. 2. Comparison of the rest and stress images revealed no fixed reversible defects suggestive of infarct or ischemia. 3. Gated analysis reveals normal LV function. IMPRESSION: 1. Normal myocardial perfusion scan. 2. Normal LV function. 3. Low risk cardiac study. JOB# [id number] RR/NTS
--- NOTE | 2019-06-28 13:59 | Discharge Summary ---
Providers - Providers Date of Admission: 06/26/19 21:54 Date of discharge: 06/28/19 Attending physician: ARMIDA NICOLE 06/26/19 22:41 Consult to Physician [CONS] Routine Comment: Consulting Provider: QI ALVAREZ Physician Instructions: Reason For Exam: cp Primary care physician: [employer] ARCHITECT Hospitalization Condition: Good Disposition: DC-01 TO HOME OR SELFCARE Time spent for discharge: 32 min Core Measure Documentation - Palliative Care Palliative Care/ Comfort Measures: Not Applicable - Core Measures Any of the following diagnoses?: none Exam - Constitutional Vitals: Temp Pulse Resp BP Pulse Ox 98.2 F 87 18 142/95 97 06/28/19 09:58 06/28/19 10:00 06/28/19 09:58 06/28/19 09:58 06/28/19 03:57 General appearance: Present: no acute distress, well-nourished, obese - EENT Eyes: Present: PERRL, EOM intact - Neck Neck: Present: supple, normal ROM - Respiratory Respiratory effort: normal Respiratory: bilateral: diminished, negative: rales, rhonchi, wheezing - Cardiovascular Rhythm: regular Heart Sounds: Present: S1 & S2 - Extremities Extremities: no ischemia, No edema - Abdominal General gastrointestinal: Present: soft, non-tender, non-distended, normal bowel sounds - Integumentary Integumentary: Present: clear, warm - Musculoskeletal Musculoskeletal: strength equal bilaterally - Psychiatric Psychiatric: appropriate mood/affect, cooperative - Neurologic Neurologic: CNII-XII intact, moves all extremities Plan Activity: advance as tolerated Diet: other (cardiac diet) Additional Instructions: If you have chest pain or shortness of breath contact MD or go to emergency room. 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
== END 2019-06-28 15:01 | disposition home or self-care (01) | DRG 313 ==
LOC: ED 18:30 → 4A 21:54 → OBSVTOIN 06-28 13:57
PROVIDERS: ADMIT Internal Medicine; ATTEND Internal Medicine
DX: R07.9 Chest pain, unspecified (principal); I10 Essential (primary) hypertension; E78.5 Hyperlipidemia, unspecified; M06.9 Rheumatoid arthritis, unspecified; Z88.5 Allergy status to narcotic agent; Z79.899 Other long term (current) drug therapy; Z90.711 Acquired absence of uterus with remaining cervical stump; Z82.49 Family history of ischemic heart disease and other diseases of the circulatory system
CPT/HCPCS: 36415; 78452; 80048; 82550; 82553; 84484; 85025; 93005; 93010; 93017; G0378; A9502; J1650; J2270; J2405; J2785